=== PATIENT | male | born 1970 | race Caucasian/White ===

== ENCOUNTER 2020-01-13 05:24 | Emergency (ER) | payer OTHER ==
[2020-01-13] MEDS ORDERED: Ketorolac INJ* 30 MG/ML 1 ML VIAL IV ONE (05:59)
[2020-01-13] MEDS ORDERED: NS 0.9% 1000 ML** 1,000 ML IV ONE (05:59)
[2020-01-13 06:29] LABS: ABS Lymphocytes 0.8 10^3/ul (1.0-4.8); ABS Monocytes 0.4 10^3/ul (0-0.8); Hematocrit 42 % (42-52); Hemoglobin 14.4 g/dL (14.0-18.0); Lymphocyte % 11.1 %; Mean Corpuscular HGB Conc 34 g/dL (31-36); Mean Corpuscular Hemoglobin 32 pg (27-31); Mean Corpuscular Volume 93 fL (80-94); Platelet Count 229 10^3/uL (150-450); Red Blood Count 4.53 10^6 /uL (4.18-5.48); Red Cell Distribution Width 13 % (10-15); White Blood Count 7.2 10^3/uL (3.5-10.8)
[2020-01-13 06:52] LABS: ALT 26 U/L (7-52); Albumin 4.6 g/dL (3.2-5.2); Albumin/Globulin Ratio 1.7 (1-3); Alkaline Phosphatase 39 U/L (34-104); BUN/Creatinine Ratio 22.1 (8-20); Blood Urea Nitrogen 23 mg/dL (6-24); CO2 Carbon Dioxide 26 mmol/L (22-32); Calcium 9.4 mg/dL (8.6-10.3); Chloride 101 mmol/L (101-111); EGFR African American 91.5 (>60); EGFR Non-African American 75.6 (>60); Globulin 2.7 g/dL (2-4); Glucose 119 mg/dL (70-100); Sodium 134 mmol/L (135-145); Total Protein 7.3 g/dL (6.4-8.9)
[2020-01-13 07:23] LABS: Anion Gap 7 mmol/L (2-11)
[2020-01-13 08:03] LABS: Potassium Redraw 4.6 mmol/L (3.5-5.0)
[2020-01-13 08:09] VITALS: BP 119/65
--- NOTE | 2020-01-13 09:42 | ED ---
Dizziness - HPI Summary HPI Summary: This patient is an otherwise healthy 49-year-old male presenting to the ED with chief complaint of dizziness. Patient states he has had back pain for the past few days and following up with his PCP 2 days ago. His PCP have given him baclofen, tramadol and prednisone. He states he took these medications for the past 2 days and is now feeling dizzy. He has never had these symptoms before and has been on prednisone in the past. He has never been on tramadol or baclofen area he has been taking ibuprofen for his back pain without much relief. States it is very difficult for him to ambulate, and he feels he is unable to stand due to the pain. Dizziness symptoms were worse this morning and better currently, but continues to have symptoms. Denies any cardiac history. Denies any shortness of breath or chest pain. Denies any visual changes, memory loss, confusion or headache. He states the dizziness symptoms are worse with moving his head and sitting upright, better with lying flat and closing his eyes. He denies any photophobia, but symptoms are worse with opening his eyes. Symptoms have improved since arrival to the ED, but continues to endorse back pain. Has not taken his medications since last evening. No bladder or bowel dysfunction. I - History Of Current Complaint Chief Complaint: EDDizziness Stated Complaint: BACK PAIN PER EMS Time Seen by Provider: 01/13/20 05:43 Hx Obtained From: Patient Timing: Constant Severity Initially: Severe Severity Currently: Mild Character: Lightheaded, Dizzy Aggravating Factor(s): Position Change Alleviating Factor(s): Lying Down, Closing Eyes Associated Signs And Symptoms: Positive: Diaphoresis. Negative: Nausea, Vomiting, Diarrhea, Palpitations, Unsteady Gait, Visual Changes, Blood In Stool , Inability to Walk, Slurred Speech - Allergies/Home Medications Allergies/Adverse Reactions: Allergies Allergy/AdvReac Type Severity Reaction Status Date / Time erythromycin base Allergy Hives Verified 01/13/20 05:30 [From Ilosone] promethazine [From Phenergan] Allergy Hives Verified 05/25/19 08:12 Home Medications: Home Medications Ketorolac TAB * [Toradol TAB *] 10 mg PO Q6H #16 tab 01/13/20 [Rx] PMH/Surg Hx/FS Hx/Imm Hx Previously Healthy: Yes Endocrine/Hematology History: Denies: Hx Diabetes Cardiovascular History: Denies: Hx Hypertension, Hx Pacemaker/ICD Respiratory History: Denies: Hx Asthma Sensory History: Denies: Hx Hearing Aid Psychiatric History: Denies: Hx Panic Disorder - Surgical History Surgery Procedure, Year, and Place: ACL RECON BILATERAL KNEES - Immunization History Hx Pertussis Vaccination: No Immunizations Up to Date: Yes Infectious Disease History: No Infectious Disease History: Denies: Traveled Outside the [place] in Last 30 Days - Social History Occupation: Employed Full-time Lives: With Family Alcohol Use: Weekly Hx Substance Use: No Substance Use Type: Reports: None Hx Tobacco Use: No Smoking Status (MU): Never Smoked Tobacco Review of Systems Negative: Fever, Chills, Fatigue, Skin Diaphoresis Negative: Palpitations, Chest Pain Negative: Shortness Of Breath, Cough Genitourinary: Negative Positive: no symptoms reported, see HPI Positive: Arthralgia - left sided low back pain. Negative: Myalgia Skin: Negative Neurological/Mental Status: Negative Positive: Syncope All Other Systems Reviewed And Are Negative: Yes Physical Exam Triage Information Reviewed: Yes Vital Signs On Initial Exam: Initial Vitals Temp Pulse Resp BP Pulse Ox 97.9 F 64 20 139/70 98 01/13/20 05:25 01/13/20 05:25 01/13/20 05:25 01/13/20 05:25 01/13/20 05:25 Vital Signs Reviewed: Yes Appearance: Positive: Well-Nourished, Ill-Appearing Skin: Positive: Warm, Skin Color Reflects Adequate Perfusion Head/Face: Positive: Normal Head/Face Inspection Eyes: Positive: EOMI, MAXIMUS, Conjunctiva Clear Neck: Positive: Supple, No Lymphadenopathy Respiratory/Lung Sounds: Positive: Clear to Auscultation, Breath Sounds Present Cardiovascular: Positive: RRR, Pulses are Symmetrical in both Upper and Lower Extremities Musculoskeletal: Positive: Pain @ - low back pain - left sided Neurological: Positive: Sensory/Motor Intact, Alert, Oriented to Person Place, Time, CN Intact II-III, Reflexes Intact, Speech Normal Psychiatric: Positive: Normal, Affect/Mood Appropriate AVPU Assessment: Alert Procedures - Sedation Patient Received Moderate/Deep Sedation with Procedure: No Diagnostics - Vital Signs Vital Signs Temp Pulse Resp BP Pulse Ox 01/13/20 08:09 98.4 F 63 15 119/65 99 01/13/20 08:06 66 119/65 98 01/13/20 08:03 66 117/74 99 01/13/20 08:00 69 98 01/13/20 07:36 62 126/76 99 01/13/20 07:05 61 108/67 98 01/13/20 07:00 66 98 01/13/20 06:35 59 124/81 98 01/13/20 06:05 66 130/68 98 01/13/20 06:00 64 98 01/13/20 05:35 71 130/78 97 01/13/20 05:25 97.9 F 64 20 139/70 98 - Laboratory Lab Results: Lab Results 01/13/20 01/13/20 01/13/20 Range/Units 06:20 06:20 07:39 WBC 7.2 (3.5-10.8) 10^3/uL RBC 4.53 (4.18-5.48) 10^6 /uL Hgb 14.4 (14.0-18.0) g/dL Hct 42 (42-52) % MCV 93 (80-94) fL MCH 32 H (27-31) pg MCHC 34 (31-36) g/dL RDW 13 (10-15) % Plt Count 229 (150-450) 10^3/uL MPV 8.0 (7.4-10.4) fL Neut % (Auto) 83.6 % Lymph % (Auto) 11.1 % [place] % (Auto) 5.0 % Eos % (Auto) 0.0 % Baso % (Auto) 0.3 % Absolute Neuts (auto) 6.0 (1.5-7.7) 10^3/ul Absolute Lymphs (auto) 0.8 L (1.0-4.8) 10^3/ul Absolute Monos (auto) 0.4 (0-0.8) 10^3/ul Absolute Eos (auto) 0.0 (0-0.6) 10^3/ul Absolute Basos (auto) 0.0 (0-0.2) 10^3/ul Absolute Nucleated RBC 0.0 10^3/ul Nucleated RBC % 0.0 Sodium 134 L (135-145) mmol/L Potassium TNP 4.6 Chloride 101 (101-111) mmol/L Carbon Dioxide 26 (22-32) mmol/L Anion Gap 7 (2-11) mmol/L BUN 23 (6-24) mg/dL Creatinine 1.04 (0.67-1.17) mg/dL Est GFR ( Amer) 91.5 (>60) Est GFR (Non-Af Amer) 75.6 (>60) BUN/Creatinine Ratio 22.1 H (8-20) Glucose 119 H (70-100) mg/dL Calcium 9.4 (8.6-10.3) mg/dL Total Bilirubin 0.60 (0.2-1.0) mg/dL AST TNP 27 ALT 26 (7-52) U/L Alkaline Phosphatase 39 (34-104) U/L Troponin I 0.00 (<0.03) ng/mL Total Protein 7.3 (6.4-8.9) g/dL Albumin 4.6 (3.2-5.2) g/dL Globulin 2.7 (2-4) g/dL Albumin/Globulin Ratio 1.7 (1-3) Result Diagrams: 01/13/20 06:20 01/13/20 07:39 Lab Statement: Any lab studies that have been ordered have been reviewed, and results considered in the medical decision making process. Dizzy Course/Dx - Course Course Of Treatment: Patient is evaluated for symptoms dizziness since last night. He has a feeling of "wooziness" and feeling like near syncope. He is endorsing severe left-sided low back pain radiating into the buttocks. He has had this for several days and has followed up with his PCP who prescribed baclofen, tramadol and prednisone. He has been on these medications for 2 days. He states he took all of these medications at once when he began to feel symptomatic. He denies any vomiting, however endorses mild nausea. Endorses dizziness and lightheadedness, especially with trying to sit upright or any head movement. He does state his dizziness has improved over the past few hours and since arrival to the ED, rating it currently a 5/10. He states he is fatigued and thirsty as well. An EKG was performed which shows a normal sinus rhythm with a rate of 61. Labs obtained: Glucose 119, BUN 22.1, sodium level 124. Other labs WNL. Patient is given toradol in the ED. This with good effect. States he does feel improved with toradol, more than his home medications. I have rx toradol for patient x 4 days. Encouraged heat and rest. He is concerned he will be unable to walk when he gets home. Does have help at bedside. Ambulated a few steps to wheelchair. Patient encouraged to return if any B/B dysfunction, any worsening pain or complete inability to walk or care for self. Will continue on prednisone. Discontinue baclofen. - Diagnoses Differential Diagnosis/HQI/PQRI: Other - medication reaction Provider Diagnoses: Dizziness, Back pain Discharge ED - Sign-Out/Discharge Documenting (check all that apply): Patient Departure - Discharge Plan Condition: Stable Disposition: HOME Prescriptions: Ketorolac TAB * [Toradol TAB *] 10 mg PO Q6H #16 tab Referrals: Orion Romero NP [Primary Care Provider] - Additional Instructions: Keep taking the steroid I would avoid taking the baclofen - that could be causing you to feel dizzy Toradol four times daily x 4 days DO NOT TAKE IBUPROFEN WHEN TAKING THIS MEDICATION Moist heat to the area Rest gentle stretches - Billing Disposition and Condition Condition: STABLE Disposition: Home
== END 2020-01-13 08:09 | disposition home or self-care (01) ==
LOC: ED 05:24
DX: R55 Syncope and collapse (principal); R42 Dizziness and giddiness; M54.9 Dorsalgia, unspecified; Z88.8 Allergy status to other drugs, medicaments and biological substances
CPT/HCPCS: 36415; 80053; 84484; 85025; 93005; 96361; 96374; 99283; J1885